=== PATIENT | female | born 1955 | race Caucasian/White ===

== ENCOUNTER → 2017-06-28 | Outpatient (CLI) | payer OTHER ==
[~2017-06-28] MED LIST: METO100T44 PO
--- NOTE | 2017-06-28 08:54 | DIAGNOSTIC IMAGING REPORT ---
ULTRASOUND SOFT TISSUES NECK CLINICAL HISTORY: Palpable lump. COMPARISON STUDY: No priors. FINDINGS: Real-time, grayscale, and color flow sonography of the soft tissues in the posterior neck is performed at the indicated site of interest. There is a tiny benign-appearing lymph node identified at this site. The node maintains a normal fatty hilum and measures up to 4 mm in maximum diameter. IMPRESSION: The finding of palpable concern corresponds to a benign-appearing 4 mm lymph node. This is of doubtful significance and is too small for fine-needle aspiration. Clinical follow-up is recommended. Electronically signed by: Frankie Atkinson M.D. 06/28/2017 8:53 AM Dictated Date/Time: 06/28/2017 8:51 AM
== END | disposition home or self-care (01) ==
LOC: C.ULTR 08:11
PROVIDERS: ATTEND Family Medicine
DX: R59.0 Localized enlarged lymph nodes (principal); Z88.0 Allergy status to penicillin; Z88.6 Allergy status to analgesic agent